=== PATIENT | female | born 1985 | race African-American/Black ===

== ENCOUNTER 2017-01-11 11:47 | Outpatient (CLI) | payer BC ==
[2017-01-11 13:15] LABS: APPEARANCE,URINE SLIGHTLY-CLOUDY; BILIRUBIN,URINE NEGATIVE (NEGATIVE); GLUCOSE, URINE NEGATIVE (NEGATIVE); KETONES,URINE NEGATIVE (NEGATIVE); LEUKOCYTE ESTERASE,URINE TRACE (NEGATIVE); NITRITE,URINE NEGATIVE (NEGATIVE); PROTEIN,URINE NEGATIVE (NEGATIVE); RBC,URINE 0-1 /HPF; URINE SPECIFIC GRAVITY 1.026; UROBILINOGEN,URINE NEGATIVE mg/dL (<2.0); WBC,URINE 0-1 /HPF
[2017-01-11 13:16] LABS: BACTERIA,URINE 1+ /HPF
[2017-01-11 13:30] LABS: URINE BARBITURATES SCREEN NEGATIVE; URINE METHADONE SCREEN NEGATIVE; URINE OPIATES LOW NEGATIVE; URINE PHENCYCLIDINE SCREEN NEGATIVE
--- NOTE | 2017-01-11 14:01 | L&D Flow Sheet ---
LD Flowsheet Datetime Report Generated by CPN: 01/11/2017 14:00 Datetime: 01/11/2017 13:56 Teaching Instructional Method: Verbal; Patient Instructed; Verbalized Understanding (Kelle Amaro RN) Plan of Care: Plan of Care Discussed (Kelle Amaro RN) Teaching Comments: Reviewed results and provider orders. Warm blanket provided, pt denies further needs. (Kelle Amaro RN) Datetime: 01/11/2017 13:55 Communication Communication Comments: Bhumi Cheung CNM on unit, reviewed strip. Reviewed cervical length 3.7 cm and pending FFN. Reviewed pt history, nursing assessment, urine results, VS. Orders received to d/c pt home with negative FFN, diagnosis no PTL. (Kelle Shandraano, RN) Datetime: 01/11/2017 13:45 NBP Sys/Rachael/Mean (mmHg): 120 (QS system process) : 62 (QS system process) : 85 (QS system process) Pulse: 78 (QS system process) LaborFlag: Labor (QS system process) Datetime: 01/11/2017 13:15 NBP Sys/Rachael/Mean (mmHg): 127 (QS system process) : 58 (QS system process) : 84 (QS system process) Pulse: 80 (QS system process) LaborFlag: Labor (QS system process) Datetime: 01/11/2017 13:13 Patient Care Patient Position/Activity: Right Tilt; Semi-Fowlers (Kelle Vitrano, RN) Patient Care Comments: Pt returned from radiology in stable condition. A. Skye, CNM on unit, reviewed strip. May monitor with toco only; FHTs WNL for gestational age. Pt denies needs. (Kelle Shandraano, RN) Datetime: 01/11/2017 12:46 Patient Care Comments: Pt to radiology in stable condition with transport (Kelle Vitrano, RN) Datetime: 01/11/2017 12:26 Contraction Comments: Denies contractions since arrival on unit (Kelle Vitrano, RN) Datetime: 01/11/2017 12:25 Vital Signs Stage of : Labor (Kelle Vitrano, RN) Uterine Activity Frequency (min): Irregular (Kelle Vitrano, RN) Pain Pain Scale: 2 (Kelle YAJAIRA Amaro) Pain Presence: Intermittent (Kelle Prem RN) Pain Type: Cramping; Contraction (Kelle YAJAIRA Amaro) Pain Location: Abdomen (Annotations: Low pelvis/abdomen) (Kelle Vitrano, RN) Pain Assessment Comments: Pt in no apparent distress (Kelle Vitrano, RN) Vaginal Exam Membrane Status: Intact (Kelle Vitrano, RN) Vaginal Bleeding: None (Kelle Vitrano, RN) Maternal Assessment Level of Consciousness: Fully Conscious (Kelle Vitrano, RN) DTR's/Clonus: DTRs 2+; No Clonus (Kelle Vitrano, RN) Headache: Denies (Kelle Vitrano, RN) Breath Sounds, Left: Clear and Equal (Kelle Vitrano, RN) Breath Sounds, Right: Clear and Equal (Kelle Vitrano, RN) Nausea/Vomiting: Denies (Kelle Vitrano, RN) RUQ Epigastric Pain: Denies (Kelle Vitrano, RN) LaborFlag: Labor (QS system process) Datetime: 01/11/2017 12:19 Patient Care Comments: FFN collected and sent (Kelle Vitrano, RN) Datetime: 01/11/2017 12:15 NBP Sys/Rachael/Mean (mmHg): 118 (QS system process) : 59 (QS system process) : 81 (QS system process) Pulse: 87 (QS system process) Respirations: 16 (Kelle Vitrano, RN) LaborFlag: Labor (QS system process) Datetime: 01/11/2017 12:12 Vital Signs Stage of : Labor (Kelle Shandraano, RN) Patient Care Patient Position/Activity: Right Tilt; Semi-Fowlers (Kelle Amaro RN) I/O Interventions: Clear Liquids Given (Kelle Amaro, RN) Teaching Instructional Method: Verbal; Patient Instructed; Family/Support Person Instructed; Verbalized Understanding (Kelle Amaro RN) Plan of Care: Plan of Care Discussed (Kelle Amaro RN) Unit Routine: Shushan to Room; Call Uribe; Bed; Unit Personnel; Monitoring; Safety/Fall Risk Prevention; Bathroom Privileges (Kelle Amaro RN)
== END 2017-01-11 14:31 | disposition home or self-care (01) ==
LOC: LC 11:47
PROVIDERS: ATTEND Student in an Organized Health Care Education/Training Program
PROC: 4A1HXCZ Monitoring of Products of Conception, Cardiac Rate, External Approach (ICD-10-PCS; principal; 2017-01-11)
DX: O26.892 Other specified pregnancy related conditions, second trimester (principal); R10.9 Unspecified abdominal pain; Z3A.27 27 weeks gestation of pregnancy
CPT/HCPCS: 76815; 80307; 81001; 82731

== ENCOUNTER 2017-03-25 13:10 | Inpatient (IN) | payer BC ==
[2017-03-25 13:36] LABS: APPEARANCE,URINE CLEAR; BILIRUBIN,URINE NEGATIVE (NEGATIVE); GLUCOSE, URINE NEGATIVE (NEGATIVE); KETONES,URINE NEGATIVE (NEGATIVE); LEUKOCYTE ESTERASE,URINE NEGATIVE (NEGATIVE); NITRITE,URINE NEGATIVE (NEGATIVE); PROTEIN,URINE NEGATIVE (NEGATIVE); URINE SPECIFIC GRAVITY 1.005; UROBILINOGEN,URINE NEGATIVE mg/dL (<2.0)
[2017-03-25 13:54] LABS: URINE BARBITURATES SCREEN NEGATIVE; URINE METHADONE SCREEN NEGATIVE; URINE OPIATES LOW NEGATIVE; URINE PHENCYCLIDINE SCREEN NEGATIVE
[2017-03-25] MEDS ORDERED: CITRIC ACID/SODIUM CITRATE ORAL SOLN 15 ML UDCUP ONE (15:06)
[2017-03-25] MEDS ORDERED: MISOPROSTOL 0.2 MG TABLET ONE (15:06)
[2017-03-25] MEDS ORDERED: CEFAZOLIN 2 GM/D5W RTU 2 GM/50 ML RTUPB IV ONE (15:06)
[2017-03-25 15:38] LABS: ABSOLUTE BASOPHILS # (AUTO) 0.1 10^3/uL (0.0-0.2); ABSOLUTE EOSINOPHILS # (AUTO) 0.2 10^3/uL (0.0-0.6); ABSOLUTE LYMPHOCYTES (AUTO) 1.4 10^3/uL (0.5-4.7); ABSOLUTE MONOCYTES (AUTO) 0.6 10^3/uL (0.1-1.4); ABSOLUTE NEUT (AUTO) 5.7 10^3/uL (1.7-8.2); BASOPHILS % (AUTO) 0.6 % (0-2); EOSINOPHILS % (AUTO) 2.8 % (0-6); HEMATOCRIT 32.1 % (36.0-47.0); HEMOGLOBIN 10.6 g/dL (12.0-15.5); HGB HCT DIFFERENCE -0.3; LYMPHOCYTES % (AUTO) 17.1 % (13-45); MEAN CORPUSCULAR HEMOGLOBIN 25.8 pg (27.0-33.4); MEAN CORPUSCULAR VOLUME 78 fl (80-97); MONOCYTES % (AUTO) 7.5 % (3-13); RED CELL DISTRIBUTION WIDTH 16.7 % (11.5-14.0); WHITE BLOOD COUNT 7.9 10^3/uL (4.0-10.5)
[2017-03-25] MEDS ORDERED: OXYTOCIN 10 UNIT/ML VIAL ONE (15:46)
[2017-03-25] MEDS ORDERED: FENTANYL CITRATE INJ/PF 100 MCG/2 ML AMPUL ONE (15:46)
[2017-03-25] MEDS ORDERED: KETOROLAC TROMETHAMINE INJ/PF 30 MG/1 ML SDV ONE (15:46)
[2017-03-25] MEDS ORDERED: ONDANSETRON HCL INJ/PF 4 MG/2 ML SDV ONE (15:47)
[2017-03-25] MEDS ORDERED: OXYTOCIN/NORMAL SALINE 20 UNIT/1,000 ML RTUINJ ONE (15:47)
[2017-03-25] MEDS ORDERED: MIDAZOLAM 2 MG/2 ML INJ ONE (15:47)
[2017-03-25] MEDS ORDERED: FENTANYL CITRATE INJ/PF 250 MCG/5 ML AMPULE ONE (15:47)
[2017-03-25] MEDS ORDERED: ACETAMINOPHEN 100 ML IV ONE (15:47)
[2017-03-25] MEDS ORDERED: EPHEDRINE SULFATE INJ 50 MG/1 ML AMPULE ONE (15:47)
[2017-03-25] MEDS ORDERED: RINGERS SOLUTION,LACTATED 1,000 ML IV PRN (16:56)
[2017-03-25] MEDS ORDERED: DIPH/PERTUSS(ACELL)/TETANUS VAC/PF 0.5 ML SYR (>=10YO) IM PRN (16:56)
[2017-03-25] MEDS ORDERED: PROMETHAZINE HCL INJ 25 MG/1 ML VIAL IV PRN (16:56)
[2017-03-25] MEDS ORDERED: OXYTOCIN/NORMAL SALINE 1,000 ML IV PRN (16:56)
[2017-03-25] MEDS ORDERED: ACETAMINOPHEN 100 ML IV PRN (16:56)
[2017-03-25] MEDS ORDERED: ACETAMINOPHEN 325 MG TABLET PO PRN (16:56)
[2017-03-25] MEDS ORDERED: OXYCODONE-ACETAMINOPHEN 5-325 MG TABLET PO PRN (16:56)
[2017-03-25] MEDS ORDERED: MEASLES,MUMPS&RUBELLA VACC/PF 0.5 ML VIAL SUBCUT PRN (16:56)
[2017-03-25] MEDS ORDERED: MORPHINE SULFATE 10 MG/ML INJ IV PRN (16:56)
--- NOTE | 2017-03-25 17:28 | OPERATIVE REPORT E ---
Operative Report NAME: EDWIN HALE : 1985 AGE: 31Y DATE OF SURGERY: 03/25/2017 ROOM: PREOPERATIVE DIAGNOSES: 1. IUP at 37 weeks and 5 days. 2. Double footling breech. 3. Undesired fertility. POSTOPERATIVE DIAGNOSES: 1. IUP at 37 weeks and 5 days. 2. Double footling breech. 3. Undesired fertility. OPERATION: Low transverse hysterotomy section with [place] tubal ligation. SURGEON: LISA PINO M.D. ANESTHESIA: Dr. Boykin with a spinal. FINDINGS: Double footling breech female with scores of 9, 9. COMPLICATIONS: None. ESTIMATED BLOOD LOSS: 600 mL. TISSUE REMOVED OR ALTERED: Specimens removed were bilateral fallopian tubes. PROCEDURE IN DETAIL: The patient was taken to the operating room, prepared and draped in a normal sterile fashion in a supine position with a leftward tilt. A transverse skin incision was made with the scalpel and carried through to the underlying layer of fascia with the same scalpel. The fascia was excised in the midline, extended laterally with Sykes scissors. The fascia was dissected from the rectus muscle bluntly, and the rectus muscle was divided. The peritoneal cavity was entered bluntly with surgeon finger fracture, and a bladder blade was inserted. The hysterotomy was nicked with a scalpel, and the hysterotomy was extended with surgeon finger fracture. The amniotomy was performed bluntly, and the infant's feet were grasped and delivered. The rest of the then delivered slowly until we reached the scapulae, where the arms were flipped using the Pasha maneuver. The head was then delivered using the *------* maneuver and with no complications. The cord was clamped and cut, and the was handed off to awaiting pediatricians. The placenta was removed manually. The uterus was exteriorized and cleared of clots and debris. The hysterotomy was closed with #0-Monocryl in a running locked fashion. A second layer of the same suture was used to imbricate and to assure hemostasis. Attention was then turned to the tubal ligation. After verifying with the patient once more with all staff present that she did continue to desire a tubal, the right fallopian tube was grasped with a Yovany, the mesosalpinx was divided with the Bovie, and a large 3 cm section of the fallopian tube was tied off with 2-0 chromic. The intermediate section was then transected using Metzenbaum scissors and the ends were coagulated for hemostasis with the Bovie. This was repeated on the left fallopian tube without difficulty. The uterus was then returned to the abdomen. Abdomen was cleared of clots and debris. The pedicles were reinspected and found to be hemostatic and intact. The rectus muscle and peritoneum were re-approximated with a mattress suture of 2-0 chromic. The fascia was closed with #0-Vicryl. The subcutaneous layer was closed with plain catgut, and the skin was closed with 4-0 Vicryl. The patient tolerated the procedure well. Sponge, lap, and needle counts were correct x2, and the patient was taken to recovery in stable condition. DICTATING PHYSICIAN: LISA PINO M.D. [id number] PHY#: [id number] ID: [id number] JOB#: [id number] ACCT: [id number] cc:LISA PINO M.D. > MTDD
--- NOTE | 2017-03-25 17:28 | Delivery Summary ---
Del Sum A-C Datetime Report Generated by CPN: 03/25/2017 17:28 DELIVERY PERSONNEL DELIVERY PERSONNEL: ,[id number] Delivery Doctor:: Cathi Barfield MD Anesthesiologist:: Gen Velasco MD OPEN CLAIMS REPRESENTATIVE:: [place] CRNA Labor and Delivery Nurse:: Kelley Rosario RN Upper Lining Cementer:: Pamela Gorman RN Neonatal Nurse Practitioner:: LIS Santillan Nursery Nurse:: Belem Hunter RN Manager Farm/EXPLOSION WELDER: ST Alexa Manager Farm/EXPLOSION WELDER: Zurdo Lerner, FIELD SERVICES MANAGER MATERNAL INFORMATION Delivery Anesthesia: Spinal Medications After Delivery: Pitocin Bolus-Please Comment; Pitocin Drip 20 Units/1000ml NSS Meds After Delivery Comment: See Anesthesia Estimated Blood Loss (ml): 600 Maternal Complications: None LABOR SUMMARY EDC: 04/10/2017 00:00 No. Babies in Womb: 1 Attempted: No Labor Anesthesia: None LABOR INFORMATION Reason for Induction: Not Applicable Oxytocin: N/A Group B Beta Strep: Positive Antibiotics # of Doses: 1 Antibiotics Time of Last Dose: 1531 Name of Antibiotic Given: Ancef Steroids Given: None Reason Steroids Not Administered: Not Applicable MEMBRANES Membranes Rupture Method: Artificial Rupture of Membranes: 03/25/2017 16:20 Length of Rupture (hr): 0.02 Amniotic Fluid Color: Clear Amniotic Fluid Amount: Small Amniotic Fluid Odor: Normal STAGES OF LABOR Stage 3 hr: 0 Stage 3 min: 1 VAGINAL DELIVERY Episiotomy: None Laceration Extension: N/A Laceration Type: None Laceration Repair: Not Applicable Sponge Count Correct: N/A Sharps Count Correct: N/A CSECTION DELIVERY Primary Indication: Breech Presentation Secondary Indication: N/A CSection Urgency: Non-Scheduled CSection Incidence: Primary Labor: Labor Elective: Nonelective CSection Incision: Lower Uterine Transverse BABY A INFORMATION Delivery Date/Time: 03/25/2017 16:21 Method of Delivery: Born in Route : No : N/A Forceps: N/A Vacuum Extraction: N/A Shoulder Dystocia : No PRESENTATION/POSITION BABY A Presentation: Breech Cephalic Presentation: N/A Breech Presentation: Double Footling PLACENTA INFORMATION BABY A Placenta Delivery Time : 03/25/2017 16:22 Placenta Method of Delivery: Manual Removal Placenta Status: Delivered SCORES BABY A Heart Rate 1 min: >100 bpm Resp Effort 1 min: Good Cry Reflex Irritability 1 min: Cough or Sneeze or Pulls Away Muscle Tone 1 min: Active Motion Color 1 min: Body Holcomb, Extremities Blue Resuscitation Effort 1 min: Tactile Stimulation SCORE 1 MIN: 9 Heart Rate 5 min: >100 bpm Resp Effort 5 min: Good Cry Reflex Irritability 5 min: Cough or Sneeze or Pulls Away Muscle Tone 5 min: Active Motion Color 5 min: Body Holcomb, Extremities Blue Resuscitation Effort 5 min: Tactile Stimulation SCORE 5 MIN: 9 INFANT INFORMATION BABY A Gestational Age at Delivery: 37.5 Gestational Status: Early Term- 37- 38.6 Weeks Infant Outcome : Liveborn Infant Condition : Stable Sex: Female IDENTIFICATION BABY A Infant Verification Date/Time: 03/25/2017 16:23 ID Band Number: [id number] Mother's Name Verified: Yes Infant RN Verifying : Bhumi Rosario RN Liliana Gorman RN WEIGHT/LENGTH BABY A Infant Birthweight (gm): 3470 Infant Weight (lb): 7 Weight (oz): 10 Length (in): 21.00 Infant Length (cm): 53.34 CORD INFORMATION BABY A No. Cord Vessels: 3 Nuchal Cord : N/A Cord Blood Taken: Yes-For Storage (Mom's Blood type +) Suction: Mouth; Nose ASSESSMENT BABY A Complications: None Physical Findings at Delivery: Within Normal Limits Infant Respirations: Appears Normal Skin to Skin: No Xerox Machine Mechanic/ALS Called : No Infant Care By: K Elsa RN Transferred To: [facility] BABY B INFORMATION : N/A SIGNATURES : I personally evaluated and examined the patient in conjunction with the MLP and agree with the assessment, treatment plan and disposition.
[2017-03-25] MEDS ORDERED: MORPHINE SULFATE 10 MG/ML INJ ONE (18:00)
--- NOTE | 2017-03-25 18:53 | Admission Physical ---
Datetime Report Generated by CPN: 03/25/2017 18:53 CURRENT ADMISSION Chief Complaint: Uterine Contractions Indication for Induction: Not Applicable Admit Impression- Other: breech Admit Plan: Admit to Unit; Initiate Section Protocol ALLERGIES Medication Allergies: No Medication Allergies: No Known Allergies (03/25/2017) Medication Allergies: No Known Allergies (01/11/2017) Medication Allergies: No Known Allergies (10/25/2013) Latex: No Latex Allergies Food Allergies: N/A Environmental Allergies: N/A OBSTETRICAL HISTORY EDC: 04/10/2017 00:00 : 5 Para: 2 Term: 1 : 1 SAB: 2 IAB: 0 Ectopic: 0 Livin Cesareans: 0 VBACs: 0 Multiple Births: 0 Gestational Diabetes: No Rh Sensitization: No Incompetent Cervix: No RADHA: No Infertility: No ART Treatment: No Uterine Anomaly: No IUGR: No Hx Previous C/S: No Macrosomia: No Hx Loss/Stillborn: No PIH: No Hx : No Placenta Previa/Abruption: No Depression/PP Depression: No PTL/PROM: No Post Hemorrhage: No Obstetrical History Comments: G1: 2007 baby girl, 39 weeks, 5 hours labor, 7 lb 10 oz G2: 2012 SAB 5 weeks G3: 2013 sAB 7 weeks G4: 2014 baby girl, 6 lb 3 oz G5: Current; P17 SEE RECORDS Alcohol: No Marijuana : No Cocaine: No Other Illicit Drugs: No Cigarettes: Never Smoker. [id number] MEDICAL HISTORY Diabetes: No Blood Transfusion: No Pulmonary Disease (Asthma, TB): No Breast Disease: No Hypertension: No Banking Officer Surgery: No Heart Disease: No Hosp/Surgery: No Autoimmune Disorder: No Anesthetic Complications: No Kidney Disease: No Abnormal Pap Smear: No Neuro/Epilepsy: No Psychiatric Disorders: No Other Medical Diseases: No Hepatitis/Liver Disease: No Significant Family History: No Varicosities/Phlebitis: No Trauma/Violence : No Thyroid Dysfunction: No INFECTIOUS HISTORY Gonorrhea: No Genital Herpes: No Chlamydia: No Tuberculosis: No Syphilis: No Hepatitis: No HIV/AIDS Exposure: No Rash or Viral Illness: No HPV: No PHYSICAL EXAM General: Normal HEENT: Normal Neurologic: Normal Thyroid: Deferred Heart: Normal Lungs: Normal Breast: Deferred Back: Normal Abdomen: Normal Genitourinary Exam: Normal Extremities: Normal DTRs: Normal Pelvic Type: Adequate Physical Exam Comments: gravid uterus Vital Signs: Reviewed; Within Normal Limits VAGINAL EXAM Dilatation: 4 Effacement: 90 Station: -1 MEMBRANES Membranes: Bulging FETUS A EGA: 37.5 Monitoring: External US FHR- Baseline: 130 Variability: Moderate 6-25bpm Accelerations: 15X15 Decelerations: None Presentation: Breech Admit Comment: Posterior fibroid Positive GBS test G 4 delivered at 35.6 wks Breech presentation with bulging bag-will prepare for primary c/s per Dr Barfield records/sonograms available PLANS FOR LABOR AND DELIVERY Labor and Delivery: None Pain Management: Natural Feeding Preference: Formula Benefit of Breast Feed Discussed: Yes Circumcision: N/A INFORMED CONSENT Assignment: Cathi Barfield MD Signature: with User ID: Emilie : with User ID: [email or web address] : I personally evaluated and examined the patient in conjunction with the MLP and agree with the assessment, treatment plan and disposition.
[2017-03-25] MEDS: DOCUSATE SODIUM 100 MG CAPSULE PO SCH (20:01)
[2017-03-25] MEDS: OXYCODONE-ACETAMINOPHEN 5-325 MG TABLET PO PRN (20:18)
[2017-03-25] MEDS: KETOROLAC TROMETHAMINE INJ/PF 30 MG/1 ML SDV IV SCH (21:43)
[2017-03-26] MEDS: SIMETHICONE 80 MG TAB.CHEW PO PRN ×2 (04:33→15:01)
[2017-03-26] MEDS: OXYCODONE-ACETAMINOPHEN 5-325 MG TABLET PO PRN ×3 (04:33→17:38)
[2017-03-26] MEDS: KETOROLAC TROMETHAMINE INJ/PF 30 MG/1 ML SDV IV SCH (05:45)
[2017-03-26] MEDS: IBUPROFEN 800 MG TABLET PO SCH ×3 (05:50→17:37)
[2017-03-26 06:29] LABS: HEMATOCRIT 26.1 % (36.0-47.0); HGB HCT DIFFERENCE -0.6; MEAN CORPUSCULAR HEMOGLOBIN 25.6 pg (27.0-33.4); MEAN CORPUSCULAR HGB CONC 32.6 g/dL (32.0-36.0); MEAN CORPUSCULAR VOLUME 79 fl (80-97); RED BLOOD COUNT 3.32 10^6/uL (3.72-5.28); RED CELL DISTRIBUTION WIDTH 16.4 % (11.5-14.0); WHITE BLOOD COUNT 7.2 10^3/uL (4.0-10.5)
[2017-03-26 06:59] LABS: HEMOGLOBIN 8.5 g/dL (12.0-15.5)
--- NOTE | 2017-03-26 08:36 | PDOC PROGRESS REPORT ---
Subjective-OB Subjective: Post Delivery Day: 1 31 year old. Denies any needs at this time, has not voided yet, but did get up to ambulate, pain well controlled, starting to pass gas, taking sips of water. Physical Exam (OB) Vital Signs: Temp Pulse Resp BP Pulse Ox 97.4 F 69 18 112/69 100 03/26/17 07:53 03/26/17 07:53 03/26/17 07:53 03/26/17 07:53 03/26/17 07:53 Intake & Output 03/25/17 03/26/17 03/27/17 06:59 06:59 06:59 Intake Total 1000 Output Total 1300 Balance -300 Weight 104.9 kg - Dressing Removed: No Incision: Dressing - Bilateral Tubal Ligation Dressing Removed: No Site: Dressing - Lochia Lochia Amount: Scant < 10 ml Lochia Color: Rubra/Red - Abdomen Description: Soft, Round Hernia Present: No Fundal Description: Firm, Midline Fundal Height: u/u - u/2 Objective-Diagnostic Laboratory: 03/26/17 06:17 03/25/17 03/25/17 03/25/17 13:17 15:04 15:04 WBC 7.9 RBC 4.10 Hgb 10.6 L Hct 32.1 L MCV 78 L MCH 25.8 L MCHC 33.0 RDW 16.7 H Plt Count 109 L Seg Neutrophils % 72.0 Lymphocytes % 17.1 Monocytes % 7.5 Eosinophils % 2.8 Basophils % 0.6 Absolute Neutrophils 5.7 Absolute Lymphocytes 1.4 Absolute Monocytes 0.6 Absolute Eosinophils 0.2 Absolute Basophils 0.1 Urine Color STRAW Urine Appearance CLEAR Urine pH 7.0 Ur Specific [place] 1.005 Urine Protein NEGATIVE Urine Glucose (UA) NEGATIVE Urine Ketones NEGATIVE Urine Blood NEGATIVE Urine Nitrite NEGATIVE Ur Leukocyte Esterase NEGATIVE Blood Type A POSITIVE Antibody Screen NEGATIVE 03/26/17 06:17 WBC 7.2 RBC 3.32 L Hgb 8.5 L D Hct 26.1 L MCV 79 L MCH 25.6 L MCHC 32.6 RDW 16.4 H Plt Count 91 L Seg Neutrophils % Lymphocytes % Monocytes % Eosinophils % Basophils % Absolute Neutrophils Absolute Lymphocytes Absolute Monocytes Absolute Eosinophils Absolute Basophils Urine Color Urine Appearance Urine pH Ur Specific [place] Urine Protein Urine Glucose (UA) Urine Ketones Urine Blood Urine Nitrite Ur Leukocyte Esterase Blood Type Antibody Screen Assessment and Plan(PN) - Assessment and Plan (1) delivery delivered Is this a current diagnosis for this admission?: YesPlan: routine postop care (2) Tubal ligation status Is this a current diagnosis for this admission?: YesPlan: routine postop care - Time Spent with Patient Time with patient: Less than 15 minutes Critical Time spent with patient: Less than 15 minutes Medications reviewed and adjusted accordingly: Yes - Disposition Anticipated Discharge: Home Within: within 24 hours
[2017-03-26] MEDS: PRENATAL VITAMIN W-O CA NO5/FE FUMARATE/FA CAPSULE PO SCH (10:06)
[2017-03-26] MEDS: DOCUSATE SODIUM 100 MG CAPSULE PO SCH ×2 (10:06→17:37)
[2017-03-27] MEDS: OXYCODONE-ACETAMINOPHEN 5-325 MG TABLET PO PRN ×2 (03:34→12:34)
[2017-03-27 06:42] LABS: HEMOGLOBIN 8.6 g/dL (12.0-15.5); HGB HCT DIFFERENCE -0.2; MEAN CORPUSCULAR HEMOGLOBIN 25.7 pg (27.0-33.4); MEAN CORPUSCULAR HGB CONC 33.1 g/dL (32.0-36.0); MEAN CORPUSCULAR VOLUME 78 fl (80-97); RED BLOOD COUNT 3.35 10^6/uL (3.72-5.28); RED CELL DISTRIBUTION WIDTH 16.6 % (11.5-14.0)
[2017-03-27] MEDS: DOCUSATE SODIUM 100 MG CAPSULE PO SCH (09:18)
[2017-03-27] MEDS: PRENATAL VITAMIN W-O CA NO5/FE FUMARATE/FA CAPSULE PO SCH (09:18)
--- NOTE | 2017-03-27 11:41 | PDOC DISCHARGE SUMMARY ---
Final Diagnosis Discharge Date: 03/27/17 - Final Diagnosis (1) Status post primary low transverse section Is this a current diagnosis for this admission?: Yes (2) Anemia associated with acute blood loss Is this a current diagnosis for this admission?: Yes (3) Tubal ligation status Is this a current diagnosis for this admission?: Yes Discharge Data - Discharge Medication Home Medications: Vit #76/Iron,Carb/FA [Pnv 29-1 Tablet] 1 tab PO DAILY 05/21/15 Docusate Sodium [Colace 100 mg Capsule] 100 mg PO BID #60 capsule 03/27/17 Ferrous Sulfate [Feosol 325 mg Tablet] 325 mg PO BID #60 tablet 03/27/17 Ibuprofen [Motrin 800 mg Tablet] 800 mg PO Q8HP PRN #90 tablet 03/27/17 Oxycodone HCl/Acetaminophen [Percocet 5-325 mg Tablet] 1 tab PO Q4HP PRN #30 tablet 03/27/17 Reason(s) for Admission: Onset of Labor - bulging bag of water and dilated to 4cm and footling breech Procedures: Ultrasound Intrapartum Procedure(s): : Low Cervical, Transverse, Tubal Ligation - Diagnosis Test Laboratory: Temp Pulse Resp BP Pulse Ox 98.1 F 79 22 H 127/72 H 100 03/27/17 07:49 03/27/17 07:49 03/27/17 07:49 03/27/17 07:49 03/27/17 07:49 03/25/17 03/25/17 03/26/17 13:17 15:04 06:17 RBC 4.10 3.32 L Hgb 10.6 L 8.5 L D Hct 32.1 L 26.1 L Urine Opiates Screen NEGATIVE 03/27/17 06:33 RBC 3.35 L Hgb 8.6 L Hct 26.0 L Urine Opiates Screen - Discharge information/Instructions Discharge Activity: Activity As Tolerated, Balance Activity w/Rest, No Driving, No Lifting Over 10 Pounds, No Lifting/Push/Pulling, Pelvic Rest, Slowly Increase Activity, No tub bath Discharge Diet: Regular Disposition: HOME, SELF-CARE Follow up with: [facility] in: 1, Weeks - incision check
[2017-03-27 11:44] VITALS: BP 127/69
== END 2017-03-27 14:45 | disposition home or self-care (01) | DRG 765 ==
LOC: LC 13:10 → LR 14:47 → 2S 18:52
PROVIDERS: ADMIT Obstetrics & Gynecology; ATTEND Obstetrics & Gynecology
PROC: 10D00Z1 Extraction of Products of Conception, Low, Open Approach (ICD-10-PCS; principal; 2017-03-25)
PROC: 0UL70ZZ Occlusion of Bilateral Fallopian Tubes, Open Approach (ICD-10-PCS; 2017-03-25)
DX: O32.8XX0 Maternal care for other malpresentation of fetus, not applicable or unspecified (principal); D62 Acute posthemorrhagic anemia; Z37.0 Single live birth; O99.824 Streptococcus B carrier state complicating childbirth; Z3A.37 37 weeks gestation of pregnancy; Z30.2 Encounter for sterilization; O90.81 Anemia of the puerperium
CPT/HCPCS: 1961; 36415; 80307; 81005; 85025; 85027; 86592; 86850; 86900; 86901; 88302; 94799; J0131; J0690; J1885; J2250; J2270; J2405; J2590; J3010; J3490; J7120